=== PATIENT | female | born 1965 | race African-American/Black ===

== ENCOUNTER 2016-07-27 02:25 | Emergency (ER) | payer MEDICARE, OTHER ==
[~2016-07-27] VITALS: Ht 165.1 cm; Wt 81.6 kg
[2016-07-27 02:45] VITALS: BP 127/58
[2016-07-27] MEDS ORDERED: HYDROcodone-ACET 10/325MG TAB PO ONE (04:30)
== END 2016-07-27 04:55 | disposition home or self-care (01) ==
LOC: ER 02:31
DX: M79.7 Fibromyalgia (principal); G89.29 Other chronic pain; Z76.0 Encounter for issue of repeat prescription